=== PATIENT | female | born 2000 | race Caucasian/White ===

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

== ENCOUNTER 2018-03-28 10:58 | Emergency (ER) | payer OTHER ==
--- NOTE | 2018-03-28 11:36 | CPEKG ---
Test Reason : OPEN Blood Pressure : / mmHG Vent. Rate : 063 BPM Atrial Rate : 065 BPM P-R Int : 144 ms QRS Dur : 084 ms QT Int : 422 ms P-R-T Axes : 055 049 059 degrees QTc Int : 433 ms Sinus rhythm Confirmed by Ramin Hawkins ([id number]) on 03/28/2018 11:35:32 AM Referred By: Confirmed By:Ramin Hawkins
--- NOTE | 2018-03-28 11:44 | EDPHY ---
H & P Stated Complaint: cp Time Seen by Provider: 03/28/18 11:24 HPI/ROS: CHIEF COMPLAINT: Chest pain HISTORY OF PRESENT ILLNESS: 17-year-old female generally healthy complaining of 4 days of midsternal chest pain after returning from [facility] where she is in the [employer]. No trauma. No dyspnea. Nonpleuritic. No radiation of pain. No syncope or near syncope. Patient's prior history of suicide attempts. She currently denies suicidal or homicidal ideation PRIMARY CARE PROVIDER: REVIEW OF SYSTEMS: A ten point review of systems was performed and is negative with the exception of the items mentioned in the HPI PAST MEDICAL & SURGICAL HISTORY: Prior history of suicide attempts. Otherwise no cardiac history, no coagulopathic disorder SOCIAL HISTORY: Nonsmoker. No cocaine use. FAMILY HISTORY: No family history of premature coronary artery disease or coagulopathic disorder PHYSICAL EXAM (Prior to examination, patient consented to physical exam, hands were washed and my usual and customary physical exam procedures followed) 1) GENERAL: Well-developed, well-nourished, alert and oriented. Appears to be in no acute distress. 2) HEAD: Normocephalic, atraumatic 3) HEENT: Pupils equal, round, reactive to light bilaterally. Sclera anicteric. Nasopharynx, oropharynx, clear, no lesions. MoistDry mucous membranes. Ears bilaterally with normal tympanic membranes. 4) NECK: Full range of motion, no meningeal signs. No carotid bruit 5) LUNGS: Clear auscultation bilaterally, no wheezes, no rhonchi, no retractions. 6) HEART: Regular rate and rhythm, no murmur, no heave, no gallop. No lesions. Chest wall is tender to palpation right sternal border. 7) ABDOMEN: No guarding, no rebound, no focal tenderness, negative McBurney's, negative Roche's, negative Rovsing's, negative peritoneal sign, 8) MUSCULOSKELETAL: Moving all extremities, no focal areas of tenderness, no obvious trauma. No peripheral edema or discoloration. 9) BACK: No CVA tenderness, no midline vertebral tenderness, no fluctuance, no step-off, no obvious trauma, no visual or palpable abnormality. 10) SKIN: No rash, no petechiae. 11) Psychiatric: Patient is oriented X 3, there is no agitation. DIFFERENTIAL DIAGNOSIS: In no particular order, including but not limited to myocardial ischemia, pulmonary embolus, chest wall pain, pleural inflammation and pulmonary infectious causes. - Personal History LMP (Females 10-55): 1-7 Days Ago Current Tetanus/Diphtheria Vaccine: Yes Current Tetanus Diphtheria and Acellular Pertussis (TDAP): Yes - Medical/Surgical History Hx Asthma: Yes Hx Chronic Respiratory Disease: No Hx Diabetes: No Hx Cardiac Disease: No Hx Renal Disease: No Hx Cirrhosis: No Hx Alcoholism: No Hx HIV/AIDS: No Hx Splenectomy or Spleen Trauma: No Other PMH: depression anxiety asthma, SA - Social History Smoking Status: Never smoked Constitutional: Initial Vital Signs Temperature (C) 37 C 03/28/18 11:14 Heart Rate 76 03/28/18 11:14 Respiratory Rate 16 03/28/18 11:14 Blood Pressure 134/79 H 03/28/18 11:14 O2 Sat (%) 98 03/28/18 11:14 O2 Delivery Mode Room Air Allergies/Adverse Reactions: Sulfa (Sulfonamide Antibiotics) Allergy (Unknown, Verified 10/22/17 10:23) Rash Home Medications: Medication Instructions Recorded Albuterol [Proventil Inhaler HFA 1 - 2 puffs IH Q4H PRN 10/21/17 (*)] Pantoprazole Sodium [Protonix 40mg 40 mg PO DAILY 10/21/17 (*)] Acetaminophen [Tylenol 325mg (*)] 650 mg PO Q4HRS PRN tab 10/22/17 Abilify 03/28/18 Junel 1 mg-20 Mcg Tablet 03/28/18 Lamictal 03/28/18 Medical Decision Making - Diagnostics Imaging Results: Images reviewed myself ED Course/Re-evaluation: Patient's negative perc score. I do not think that D-dimer currently indicated. Will obtain EKG, chest x-ray. We discussed more than likely musculoskeletal etiology. No illicit substance history. No family history of cardiovascular disease. Patient has normal sinus EKG, negative chest x-ray. I do not think that point of care troponin indicated as I have a low pretest suspicion for cardiac pathology. We discussed more than likely musculoskeletal etiology given her recently and camp for all physical activity. She feels comfortable being discharged. My usual customary discharge precautions instructions provided. I saw this patient independently based on established practice protocols. Care of patient under supervision of secondary supervising physician Dr Ramin Hawkins with whom I discussed case. Departure - Departure Disposition: Home, Routine, Self-Care Clinical Impression: Chest pain Qualifiers: Chest pain type: unspecified Qualified Code(s): R07.9 - Chest pain, unspecified Condition: Good Instructions: Chest Pain (ED) Additional Instructions: Seek medical attention if you develop new or worsening chest pain, if you develop new or worsening shortness of breath, or any other symptoms that concern you. Adult Pain & Fever Control: We recommend Acetaminophen (Tylenol) and Ibuprofen (Motrin,Advil) for pain and fever control. When fever is high or pain severe, both drugs can be used at the same time, but at different intervals. Please note the time differences. Your dose is: Acetaminophen [650]mg every 4 to 6 hours Ibuprofen 600mg every 6 hours with food OR Note: do not take Acetaminophen with Hydrocodone (Vicodin, Lortab) or Oycodone (Percocet). These medications also contain Acetaminophen. No more than 3000mg of Acetaminophen should be taken in 24 hours (for an adult). Referrals: [facility] Nguyen,. [Clinic] - 2-3 days, call for appt.
[2018-03-28 12:11] VITALS: BP 113/78
== END 2018-03-28 12:09 | disposition home or self-care (01) ==
DX: R07.9 Chest pain, unspecified (principal); J45.909 Unspecified asthma, uncomplicated; F41.8 Other specified anxiety disorders